=== PATIENT | female | born 1985 ===

== ENCOUNTER 2021-09-30 01:23 | Emergency (ER) | payer SELFPAY ==
[2021-09-30 02:03] VITALS: BP 102/63
[2021-09-30 02:44] LABS: Basophils % (Auto) 0.1 % (0.0-1.8); Eosinophils # (Auto) 0.1 K/mm3 (0.0-0.4); Eosinophils % (Auto) 0.6 % (0.0-4.3); Hematocrit 41.6 % (30.3-42.9); Hemoglobin 13.9 gm/dl (10.1-14.3); Lymphocytes # (Auto) 0.5 K/mm3 (1.2-5.4); Lymphocytes % (Auto) 6.6 % (13.4-35.0); Mean Corpuscular HGB Conc 33 % (30-34); Mean Corpuscular Volume 87 fl (79-97); Monocytes # (Auto) 0.6 K/mm3 (0.0-0.8); Monocytes % (Auto) 7.1 % (0.0-7.3); Platelet Count 110 K/mm3 (140-440); Red Blood Count 4.77 M/mm3 (3.65-5.03)
[2021-09-30 03:25] LABS: Alanine Aminotransferase 21 units/L (7-56); Albumin 3.9 g/dL (3.9-5); Blood Urea Nitrogen 6 mg/dL (7-17); Calcium 8.8 mg/dL (8.4-10.2); Hemolysis Index 3
[2021-09-30 03:26] LABS: BUN/Creatinine Ratio 10
== END 2021-09-30 03:40 | disposition left against medical advice (07) ==
LOC: ED 01:23
DX: O26.891 Other specified pregnancy related conditions, first trimester (principal); R10.9 Unspecified abdominal pain; Z53.21 Procedure and treatment not carried out due to patient leaving prior to being seen by health care provider; Z3A.14 14 weeks gestation of pregnancy
CPT/HCPCS: 36415; 80053; 84702; 84703; 85025